=== PATIENT | male | born 1975 ===

== ENCOUNTER 2019-05-12 08:30 | Day surgery (SDC) | payer OTHER ==
[~2019-05-12 08:30] MED LIST: ATACAND16 MG PO; COLACE100 MG PO; PERCOCET 5-3251 EACH PO; PERCOCET 5/3251 TAB PO; SINGULAIR10 MG PO
== END 2019-05-12 13:25 | disposition home or self-care (01) ==
LOC: AMB-ENDOS 08:30
DX: K64.8 Other hemorrhoids (principal); Z12.11 Encounter for screening for malignant neoplasm of colon